=== PATIENT | female | born 1960 | race Hispanic/Latino ===

== ENCOUNTER 2018-12-19 08:22 | Inpatient (IN) | payer OTHER | END 2018-12-21 15:30 | disposition home health service (06) | LOC: DAHIP 08:22 → 4AH 16:16 | PROC: 0SRC0J9 Replacement of Right Knee Joint with Synthetic Substitute, Cemented, Open Approach (ICD-10-PCS; principal; 2018-12-19 12:38) | DX: M17.0 Bilateral primary osteoarthritis of knee (principal); Z68.43 Body mass index [BMI] 50.0-59.9, adult; E66.01 Morbid (severe) obesity due to excess calories; E11.9 Type 2 diabetes mellitus without complications ==

== ENCOUNTER 2019-01-07 16:00 | Inpatient (IN) | payer OTHER ==
[~2019-01-07] VITALS: Ht 154.9 cm; Wt 119.8 kg
[~2019-01-07 16:00] MED LIST: EZET1TAB21 PO; LISI10TA7 PO; METF-444 PO
[2019-01-07 17:05] VITALS: BP 137/74
[2019-01-07 17:32] LABS: BASOPHILS % (AUTO) 0.8 % (0.0-5.0); EOSINOPHILS % (AUTO) 1.3 % (0.0-8.0); HEMATOCRIT 37.1 % (36-48); LYMPHOCYTES % (AUTO) 19.3 % (21.0-51.0); MEAN CORPUSCULAR HEMOGLOBIN 29.3 pg (27.0-33.0); MEAN CORPUSCULAR HGB CONC 33.8 g/dL (32.0-36.0); MEAN CORPUSCULAR VOLUME 86.6 fL (79-99); MONOCYTES % (AUTO) 7.1 % (3.0-13.0); NEUTROPHILS % (AUTO) 71.5 % (40.0-77.0); PLATELET COUNT (AUTO) 424 K/uL (130-400); RED BLOOD CELL COUNT(AUTO) 4.28 MIL/uL (4.00-5.50); RED CELL DISTRIBUTION WIDTH 12.5 % (11.0-15.5); WHITE BLOOD COUNT (AUTO) 6.7 K/uL (4.8-10.8)
[2019-01-07 17:42] LABS: CREATININE 0.9 mg/dL (0.5-1.5); POTASSIUM 4.1 mmol/L (3.5-5.1)
[2019-01-07 18:06] LABS: INR 0.95 (0.85-1.15); PARTIAL THROMBOPLASTIN TIME 26.8 SEC (26.3-35.5)
[2019-01-07] MEDS ORDERED: OMEP20CA10 PO (18:22)
[2019-01-07] MEDS ORDERED: TRAM100T34 PO (18:22)
[2019-01-07] MEDS ORDERED: ASCO500T9 PO (18:22)
[2019-01-07] MEDS ORDERED: TYL3 PO (18:22)
[2019-01-07] MEDS ORDERED: AEC81 PO (18:22)
[2019-01-08] VITALS (27 sets, daily range): BP systolic 107–155; BP diastolic 60–99
[2019-01-08] MEDS: SODIUM CHLORIDE 0.9% 1000ML 1,000 ML IV SCH ×2 (09:37→20:08)
[2019-01-08] MEDS ORDERED: CEFAZOLIN SODIUM 1 GM VIAL ONE (09:37)
[2019-01-08] MEDS ORDERED: SODIUM CHLORIDE 0.9% 1000ML 1,000 ML IV ONE (09:37)
[2019-01-08] MEDS ORDERED: VANCOMYCIN HCL 1 GM VIAL ONE (09:43)
[2019-01-08] MEDS ORDERED: TRANEXAMIC ACID 1000MG/10ML IV ONE (09:44)
[2019-01-08] MEDS ORDERED: POTASSIUM CHLORIDE 10% ELIXIR 20 MEQ/15 ML UDCUP PO PRN (09:45)
[2019-01-08] MEDS ORDERED: POTASSIUM CHLORIDE 20MEQ/100ML 100 ML IV PRN (09:45)
[2019-01-08] MEDS ORDERED: OXYCODONE HCL 5 MG TAB PO PRN (09:45)
[2019-01-08] MEDS: ACETAMINOPHEN EXTRA STRENGTH 500 MG TABLET PO SCH ×2 (09:45→18:07)
[2019-01-08] MEDS ORDERED: TRAMADOL HCL 50 MG TABLET PO PRN (09:45)
[2019-01-08] MEDS ORDERED: LIDOCAINE HCL-MPF 1% 2ML VIAL IVP PRN (09:45)
[2019-01-08] MEDS ORDERED: ONDANSETRON HCL 4 MG/2 ML VIAL IVP PRN (09:45)
[2019-01-08] MEDS ORDERED: DiphenhydrAMINE HCL 50 MG/ML VIAL IVP PRN (09:45)
[2019-01-08] MEDS ORDERED: CALCIUM CARBONATE 500 MG TABLET PO PRN (09:45)
[2019-01-08] MEDS ORDERED: FERROUS FUMARATE 324 MG TABLET PO PRN (09:45)
[2019-01-08] MEDS ORDERED: ONDANSETRON HCL 4 MG/2 ML VIAL ONE (09:54)
[2019-01-08] MEDS ORDERED: DEXAMETHASONE SOD PHOSPHATE 10MG/ML 1ML VIAL ONE (09:54)
[2019-01-08] MEDS ORDERED: PROPOFOL 10 MG/ML 20ML VIAL IV ONE (09:54)
[2019-01-08] MEDS ORDERED: LIDOCAINE PF 2% 5ML ABBOJECT ONE (09:54)
[2019-01-08] MEDS ORDERED: MIDAZOLAM HCL 1 MG/ML 2ML VIAL ONE (09:54)
[2019-01-08] MEDS ORDERED: SUCCINYLCHOLINE 200MG/10ML SYR ONE (09:56)
[2019-01-08] MEDS ORDERED: ROCURONIUM 10MG/1ML SYR 10 MG/ML ML ONE (09:56)
[2019-01-08] MEDS ORDERED: ASCO500T9 PO (09:58)
[2019-01-08] MEDS ORDERED: ROPIVACAINE 0.5% 5MG/ML 30ML IJ ONE (10:02)
[2019-01-08] MEDS ORDERED: FENTANYL CITRATE PF 50 MCG/1 ML 2ML VIAL ONE (10:44)
[2019-01-08] MEDS ORDERED: GLYCOPYRROLATE 1 MG/5 ML SYRINGE ONE (11:52)
[2019-01-08] MEDS ORDERED: NEOSTIGMINE 5MG/5ML SYR IV ONE (11:52)
[2019-01-08] MEDS ORDERED: MORPHINE SULFATE 4 MG/1ML SYG ONE (12:12)
[2019-01-08] MEDS ORDERED: MEPERIDINE-PF 50 MG/ML SYG ONE (12:12)
[2019-01-08] MEDS ORDERED: MEPERIDINE-PF 25 MG/ML SYG ONE (12:33)
[2019-01-08] MEDS: OXYCODONE HCL 5 MG TAB PO PRN (15:24)
[2019-01-08] MEDS: CEFAZOLIN 3GM /D5W 100ML 100 ML IV SCH ×2 (15:24→22:18)
--- NOTE | 2019-01-08 18:00 | NUR ---
PATIENT CONTINUES TO COMPLAIN OF PAIN AND STATES "I DID NOT RECEIVE A BLOCK, CALL THE DOCTOR". CALLED AND AWARE. NEW ORDERS RECEIVED AND CARRIED OUT. MORPHINE 4MG GIVEN IVP X 1 DOSE. PATIENT TOLERATED WELL. Addendum: 01/08/19 at 2023 by SHANNAN LOPEZ RN RN Amended: Links added.
[2019-01-08] MEDS ORDERED: MORPHINE SULFATE 4 MG/1ML SYG IV ONE (18:15)
[2019-01-08] MEDS ORDERED: HYDROMORPHONE PCA 10MG/50 ML ( 0.2 MG/ML ) IV PRN (19:45)
[2019-01-08] MEDS ORDERED: NALOXONE HCL 0.4 MG/1 ML ML IVP PRN (19:45)
--- NOTE | 2019-01-08 20:00 | NUR ---
assessment note patient awake, alert , ox3, no sob,c/o pain, see pain assessment at treatment, no family at bedside, reinforce is as previously done, teach plan of care and expected outcome, patient verbalizes understanding via teach back
[2019-01-08] MEDS: VYTORIN PO SCH (20:08)
[2019-01-08] MEDS: CELECOXIB 200 MG CAP PO SCH (20:08)
[2019-01-08] MEDS: PREGABALIN 25 MG CAP PO SCH (20:08)
[2019-01-08] MEDS: PANTOPRAZOLE SODIUM 40 MG TABLET.DR PO SCH (20:08)
[2019-01-09] MEDS: SODIUM CHLORIDE 0.9% 1000ML 1,000 ML IV SCH (01:20)
[2019-01-09] MEDS: ACETAMINOPHEN EXTRA STRENGTH 500 MG TABLET PO SCH ×3 (01:20→18:26)
[2019-01-09] MEDS: ENOXAPARIN SODIUM 40 MG/0.4 ML SYRINGE SQ SCH ×2 (01:53→08:34)
[2019-01-09] MEDS: OXYCODONE HCL 5 MG TAB PO PRN ×3 (02:18→18:26)
[2019-01-09 03:10] VITALS: BP 132/58
[2019-01-09 05:13] LABS: HEMATOCRIT 28.3 % (36-48); MEAN CORPUSCULAR HEMOGLOBIN 29.2 pg (27.0-33.0); MEAN CORPUSCULAR HGB CONC 33.9 g/dL (32.0-36.0); MEAN CORPUSCULAR VOLUME 86.2 fL (79-99); NUCLEATED RED BLOOD CELLS 0.1 % (0.0-0.19); PLATELET COUNT (AUTO) 283 K/uL (130-400); RED BLOOD CELL COUNT(AUTO) 3.28 MIL/uL (4.00-5.50); RED CELL DISTRIBUTION WIDTH 12.7 % (11.0-15.5); WHITE BLOOD COUNT (AUTO) 10.3 K/uL (4.8-10.8)
[2019-01-09 05:37] LABS: CREATININE 0.8 mg/dL (0.5-1.5); POTASSIUM 3.4 mmol/L (3.5-5.1)
[2019-01-09] MEDS: INSULIN HUMULIN R 100 UNIT/ML 3ML SQ SCH ×4 (06:29→21:00)
[2019-01-09 08:00] VITALS: BP 137/76
[2019-01-09] MEDS: METFORMIN HCL 500 MG TABLET PO SCH (08:34)
[2019-01-09] MEDS: CELECOXIB 200 MG CAP PO SCH ×2 (08:34→20:13)
[2019-01-09] MEDS: LISINOPRIL 10 MG TABLET PO SCH (08:34)
[2019-01-09] MEDS: POLYETHYLENE GLYCOL 3350 17 GM POWD.PACK PO SCH (08:34)
[2019-01-09] MEDS: PREGABALIN 25 MG CAP PO SCH ×2 (08:34→20:13)
[2019-01-09] MEDS ORDERED: NON-FORMULARY MEDICATION 1 EACH (Omeprazole 20 MG) PO SCH (09:00)
[2019-01-09] MEDS: POTASSIUM CHLORIDE 20 MEQ ERTAB PO PRN ×2 (11:57→18:47)
[2019-01-09 16:00] VITALS: BP 151/72
--- NOTE | 2019-01-09 16:00 | NUR ---
[facility] MET WITH PATIENT THIS MORNING , AAOX3 ENG SPEAKING, EMPLOYED WHO WAS IN A LOT OF PAIN. THIS IS SECOND KNEE- HAS [employer] AND [employer]; STATED SHE BOUGHT FOR HERSELF 'BECAUSE THE DME NEVER DELIVERED'. PT STATES SHE IS A CURRENT PATIENT OF [facility] ; [facility] AND CONTACT INFO PLACED IN CHART FOR REPORT ON DISCHARGE LIVES WITH [facility] WHO WILL PROVIDE TRANSPORT. LATER SPOKE TO DR OBREGON; PERHAPS CONSIDERING PAIN LEVEL WOULD BE WELL OFF AT A SNF FOR SOME THERAPY CONSIDERING THAT ALL THREE [facility] ARE NOT VERY ACTIVE AND PT WOULD NOT GET THE APPRORIATE LEVEL OF ACTIVITY. STATED WOULD SPEAK TO PT BUT DID NOT THINK SO Addendum: 01/10/19 at 2051 by EDA BERRY RN CM Amended: Links added.
[2019-01-09 20:02] VITALS: BP 122/66
[2019-01-09] MEDS: PANTOPRAZOLE SODIUM 40 MG TABLET.DR PO SCH (20:13)
[2019-01-09] MEDS: VYTORIN PO SCH (20:14)
[2019-01-10] VITALS (7 sets, daily range): BP systolic 108–130; BP diastolic 47–77
[2019-01-10] MEDS: KETOROLAC TROMETHAMINE 15MG/ML IV PRN ×2 (01:19→17:56)
[2019-01-10] MEDS: ACETAMINOPHEN EXTRA STRENGTH 500 MG TABLET PO SCH ×3 (01:20→18:36)
[2019-01-10] MEDS: INSULIN HUMULIN R 100 UNIT/ML 3ML SQ SCH ×4 (07:30→20:16)
[2019-01-10] MEDS: PREGABALIN 25 MG CAP PO SCH ×2 (08:12→20:15)
[2019-01-10] MEDS: CELECOXIB 200 MG CAP PO SCH ×2 (08:12→20:15)
[2019-01-10] MEDS: METFORMIN HCL 500 MG TABLET PO SCH (08:12)
[2019-01-10] MEDS: POLYETHYLENE GLYCOL 3350 17 GM POWD.PACK PO SCH (08:13)
[2019-01-10] MEDS: ENOXAPARIN SODIUM 40 MG/0.4 ML SYRINGE SQ SCH (08:13)
[2019-01-10] MEDS: LISINOPRIL 10 MG TABLET PO SCH (08:13)
[2019-01-10] MEDS: OXYCODONE HCL 5 MG TAB PO PRN (13:36)
[2019-01-10] MEDS: VYTORIN PO SCH (20:15)
[2019-01-10] MEDS: PANTOPRAZOLE SODIUM 40 MG TABLET.DR PO SCH (20:15)
[2019-01-11] MEDS: OXYCODONE HCL 5 MG TAB PO PRN (00:53)
[2019-01-11] MEDS: ACETAMINOPHEN EXTRA STRENGTH 500 MG TABLET PO SCH ×2 (00:54→09:45)
[2019-01-11 02:57] VITALS: BP 103/58
[2019-01-11 04:30] LABS: BASOPHILS % (AUTO) 0.5 % (0.0-5.0); EOSINOPHILS % (AUTO) 3.6 % (0.0-8.0); HEMATOCRIT 23.1 % (36-48); LYMPHOCYTES % (AUTO) 20.8 % (21.0-51.0); MEAN CORPUSCULAR HGB CONC 33.7 g/dL (32.0-36.0); MONOCYTES % (AUTO) 11.3 % (3.0-13.0); NEUTROPHILS % (AUTO) 63.8 % (40.0-77.0); PLATELET COUNT (AUTO) 223 K/uL (130-400); RED BLOOD CELL COUNT(AUTO) 2.68 MIL/uL (4.00-5.50); RED CELL DISTRIBUTION WIDTH 12.7 % (11.0-15.5); WHITE BLOOD COUNT (AUTO) 6.8 K/uL (4.8-10.8)
[2019-01-11 04:57] LABS: CREATININE 0.8 mg/dL (0.5-1.5); POTASSIUM 3.5 mmol/L (3.5-5.1)
[2019-01-11] MEDS: INSULIN HUMULIN R 100 UNIT/ML 3ML SQ SCH ×2 (06:25→11:30)
[2019-01-11] MEDS: METFORMIN HCL 500 MG TABLET PO SCH (07:17)
[2019-01-11] MEDS: POTASSIUM CHLORIDE 20 MEQ ERTAB PO PRN ×2 (07:18→09:15)
[2019-01-11 07:48] VITALS: BP 131/75
[2019-01-11] MEDS: KETOROLAC TROMETHAMINE 15MG/ML IV PRN (08:58)
[2019-01-11] MEDS: POLYETHYLENE GLYCOL 3350 17 GM POWD.PACK PO SCH (09:14)
[2019-01-11] MEDS: PREGABALIN 25 MG CAP PO SCH (09:15)
[2019-01-11] MEDS: ENOXAPARIN SODIUM 40 MG/0.4 ML SYRINGE SQ SCH (09:15)
[2019-01-11] MEDS: CELECOXIB 200 MG CAP PO SCH (09:15)
[2019-01-11] MEDS: LISINOPRIL 10 MG TABLET PO SCH (09:16)
[2019-01-11] MEDS ORDERED: BISACODYL 10 MG SUPP.RECT RC PRN (09:45)
[2019-01-11 12:16] VITALS: BP 123/54
== END 2019-01-11 15:45 | disposition home health service (06) | DRG 470 ==
LOC: DAHIP 01-08 07:47 → 4BH 01-08 12:59
PROVIDERS: ADMIT Orthopaedic Surgery; ATTEND Orthopaedic Surgery
PROC: 0SRD0JA Replacement of Left Knee Joint with Synthetic Substitute, Uncemented, Open Approach (ICD-10-PCS; principal; 2019-01-08 10:45)
PROC: 3E0T3BZ Introduction of Anesthetic Agent into Peripheral Nerves and Plexi, Percutaneous Approach (ICD-10-PCS; 2019-01-08 10:45)
DX: M17.12 Unilateral primary osteoarthritis, left knee (principal); Z68.42 Body mass index [BMI] 45.0-49.9, adult; E66.01 Morbid (severe) obesity due to excess calories; Z96.651 Presence of right artificial knee joint; M21.162 Varus deformity, not elsewhere classified, left knee; I10 Essential (primary) hypertension; E11.9 Type 2 diabetes mellitus without complications; Z83.3 Family history of diabetes mellitus; Z82.49 Family history of ischemic heart disease and other diseases of the circulatory system; Z79.82 Long term (current) use of aspirin; Z79.84 Long term (current) use of oral hypoglycemic drugs; Z90.49 Acquired absence of other specified parts of digestive tract
CPT/HCPCS: 36415; 73562; 80048; 82948; 84132; 85025; 85027; 85610; 85730; 86850; 86900; 86901; 87641; 88305; 88311; 97039; A4218; A4606; G0378; J0330; J0690; J1100; J1170; J1650; J1885; J2001; J2175; J2250; J2270; J2405; J2704; J2710; J2795; J3010; J3370; J3490; J7030